=== PATIENT | male | born 1940 | race Caucasian/White ===

== ENCOUNTER 2016-05-23 16:42 | Emergency (ER) | payer MEDICARE, BC ==
[~2016-05-23 16:42] MED LIST: ALLEGRA ALLERG180 MG PO; ASPIRIN E.C. 8181 MG PO; BRILINTA90 MG PO; BROVANA15 MCG/2 M INH; CARDI-OMEGA1000 MG PO; CEFDINIR300 MG PO; CHILDREN'S ASPI81 M1 PO; COREG12.5 M1 PO; COREG12.5 MG PO; COZAAR100 MG PO; DHA PO; FLOMAX0.4 MG PO; FLONASE ALLERG9.9 ML NS; IMDUR 30MG30 MG/TAB PO; IPRATROPIUM BROM3 M1 IH; IPRATROPIUM BROM3 M1 INH; KROGER NIC14 MG/24 H TOP; LASIX20 M1 PO; LASIX20 MG PO; LEVAQUIN 5500 MG/TA1 PO; LIPITOR80 MG PO; MS CONTIN 330 MG/TAB PO; NEURONTIN300 M1 PO; NEURONTIN300 MG PO; NITROSTAT0.4 MG SL; NORCO 325 MG-101 TAB PO; PHARMASSURE FIS1 SGL PO; PREDNISONE20 M1 PO; PULMICORT0.25 MG/2 IH; REQUIP 0.5MG0.5 MG PO; SINEMET 25-1001 TAB PO; SINGULAIR10 MG PO; SPIRIVA RE2.5 MCG/Ac IH; TRADJENTA5 MG PO; XANAX0.5 M1 PO; XARELTO20 MG PO; ZITHROMAX500 M2 PO; ZOCOR 80MG80 MG PO; ZOVIRAX 800MG800 M1 PO; ZYLOPRIM 300MG300 MG PO
[2016-05-23] MEDS ORDERED: CEPHALEXIN500 M1 PO (19:16)
== END 2016-05-23 19:25 | disposition home or self-care (01) ==
LOC: ED 16:42
DX: S08.122A Partial traumatic amputation of left ear, initial encounter (principal); W18.09XA Striking against other object with subsequent fall, initial encounter; Y92.018 Other place in single-family (private) house as the place of occurrence of the external cause

== ENCOUNTER → 2016-05-27 | Outpatient (CLI) | payer MEDICARE, BC ==
[~2016-05-27] MED LIST changes: +ATORVASTATIN CA80 MG PO; +CEPHALEXIN500 M1 PO; +NITROSTAT0.4 M1 SL
[2016-05-27 13:16] VITALS: BP 209/114
[2016-05-27 13:18] VITALS: BP 188/84
--- NOTE | 2016-05-27 13:23 | NUR ---
Xeroform dressing soaked off of left ear. Sutures intact with edges well approximated. Skin appears purplish. Area cleansed and new dressing applied
== END ==
LOC: AMSURD 13:13
DX: S08.12 Partial traumatic amputation of ear (principal)

== ENCOUNTER 2016-05-30 13:51 | Emergency (ER) | payer MEDICARE, BC ==
[~2016-05-30 13:51] MED LIST changes: -ATORVASTATIN CA80 MG PO; -NITROSTAT0.4 M1 SL
[2016-05-30 14:07] VITALS: BP 156/68
== END 2016-05-30 14:08 | disposition home or self-care (01) ==
LOC: ED 13:51
DX: S08.12 Partial traumatic amputation of ear (principal)

== ENCOUNTER 2016-06-06 12:28 | Emergency (ER) | payer MEDICARE, BC ==
[2016-06-06 12:51] VITALS: BP 189/71
== END 2016-06-06 12:52 | disposition home or self-care (01) ==
LOC: ED 12:28
DX: S08.12 Partial traumatic amputation of ear (principal); W18.09XD Striking against other object with subsequent fall, subsequent encounter

== ENCOUNTER 2016-07-06 05:39 | Emergency (ER) | payer MEDICARE, BC | END 2016-07-06 09:28 | disposition home or self-care (01) | LOC: ED 05:39 | DX: B34.9 Viral infection, unspecified (principal); J44.9 Chronic obstructive pulmonary disease, unspecified; E11.9 Type 2 diabetes mellitus without complications; F17.210 Nicotine dependence, cigarettes, uncomplicated | CPT/HCPCS: J7030 ==

== ENCOUNTER 2016-07-09 21:50 | Emergency (ER) | payer MEDICARE, BC ==
[2016-07-10 01:13] VITALS: BP 115/45
== END 2016-07-10 01:13 | disposition other institution (70) ==
LOC: ED 21:50
DX: J44.1 Chronic obstructive pulmonary disease with (acute) exacerbation (principal); J00 Acute nasopharyngitis [common cold]; N17.9 Acute kidney failure, unspecified; E87.5 Hyperkalemia; F17.210 Nicotine dependence, cigarettes, uncomplicated
CPT/HCPCS: J2930

== ENCOUNTER 2016-07-10 01:13 | Inpatient (IN) | payer MEDICARE, BC ==
[2016-07-10] VITALS (8 sets, daily range): BP systolic 115–174; BP diastolic 45–77
--- NOTE | 2016-07-10 02:00 | NUR ---
PT ADMITTED FROM ER TO ROOM 203. ORIENTED TO ROOM. PT APPEARS TO BE DROWSY BUT IT IS 0130 IN THE MORNING. STATES IT IS [address] IN [facility]. ADMISSION ASSESSMENT AND HX OBTAINED. IVF STARTED IN RFA IV AT 200ML/HR. LS WITH EXP WHEEZING. DENIES PAIN. PT HAS SCABBED AREA TO LEFT EAR FROM PREVIOUS FALL. SUTURED IT A COUPLE WEEKS AGO. SUTURES NO LONGER IN PLACE. PT IS A HIGH FALL RISK. BED ALARM IN ON AND CALL LIGHT IS WITHIN REACH. PT INFORMED A URINE SAMPLE IS STILL NEEDED.
--- NOTE | 2016-07-10 05:53 | NUR ---
Pt has slept well since admission last night. Pt has not voided yet. Will collect urine sample when he does. Bed alarm remains on.
--- NOTE | 2016-07-10 07:28 | NUR ---
REPORT GIVEN TO MAYI ELAINE.
--- NOTE | 2016-07-10 08:10 | NUR ---
Pt called to check pt status. States that she will be in to see pt after she gets off of work.
--- NOTE | 2016-07-10 08:24 | NUR ---
Clean catch urine collected.
--- NOTE | 2016-07-10 09:29 | NUR ---
Pt sitting up in chair. A&O x 3 at this time. Fluids infusing to IV in RFA per order. O2 @ 1L via NC. Pt does have intermittent cough but denies production. Pt denies pain and is unsure what he takes MS Contin for. After some thought, states "maybe chronic kidney pain." Intermittent upper lobe crackles heard but are cleared with cough. Pt did ambulate with 1 assist to BR and back to chair.
--- NOTE | 2016-07-10 15:05 | NUR ---
Pt sats 95% on 1L O2. Turned O2 off, will recheck.
--- NOTE | 2016-07-10 16:38 | NUR ---
Pt assisted up to BR. Tachypnic with exertion and desats to 89% RA. Pt with productive cough, thick white sputum noted. Pt c/o mouth dryness, noted to be mouth breather. Sats recover quickly to 91% RA upon sitting, respirations remain 24/min.
--- NOTE | 2016-07-10 17:52 | NUR ---
Pt at bedside. Dr. Banks talks to and pt.
--- NOTE | 2016-07-10 19:25 | NUR ---
Report received from Alina Toussaint RN
--- NOTE | 2016-07-10 19:45 | NUR ---
Resting in chair, a/o x 3. Pupils equal and reactive to light. Answers questions appropriately. Pt stated he takes his pain medication and sleep medication all at the same time. Usually at 1800. Offered pt hydrocodone and xanax. Pt agreed. See shift assessment.
--- NOTE | 2016-07-10 23:30 | NUR ---
Resting in recliner, a/o x 3, denies pain. Chair alarm on.
[2016-07-11] VITALS (7 sets, daily range): BP systolic 166–195; BP diastolic 62–74
--- NOTE | 2016-07-11 00:28 | NUR ---
Pt resting with eyes closed, respirations even and none labored. Opened eyes when spoken too. Denied pain, or SOB. Given scheduled Heparin SQ. Offered to help pt reposition pt declined.
--- NOTE | 2016-07-11 03:58 | NUR ---
Q hourly checks done. Resting in recliner, with feet elevated. Chair alarm on. Pt opens eyes when spoken too. Denies having any needs or concerns. Denies SOB.
--- NOTE | 2016-07-11 05:00 | NUR ---
Resting in recliner with feet elevated. Normal Saline infusing at 125mls/hour. Opens eyes when spoken too. Denies pain, or SOB. Sa02 95% on room air. Respirations 20 and even.
--- NOTE | 2016-07-11 05:38 | NUR ---
At 0525 Ambulated to the bathroom with use of walker and gait belt. BROOCH MAKER NOVELTY at pt's side. Currently complaining of SOB. Stated it came on after walking. Sa02 91% on room air. Respirations labored and shallow. Respiration count 24-26. Lung sounds coarse on expirations in upper and lower lobes. Oxygen applied at 3L/NC. Breathing treatment started.
--- NOTE | 2016-07-11 05:46 | NUR ---
Pt a/o x 3. States he is starting to feel better. Lung sounds diminished in upper lobes bilaterally, anteriorly. Lung sounds coarse right lower anteriorly. Left lower lobe diminished anteriorly. Posteriorly lung sounds coarse on expiration. Sa02 99% on 3L/NC, respirations 24. Oxygen decreased to 2L/NC.
--- NOTE | 2016-07-11 06:00 | NUR ---
Continues to be SOB. Has loose productive cough. Sputum is thick off white. Pt c/o's of pain from SOB and coughing. C/o's of right leg starting to cramp. Given 1 hydrocodone PO. Sa02 96% on 2L/NC. Respirations 24 and shallow.
--- NOTE | 2016-07-11 07:06 | NUR ---
Report given to Dr Banks. Notified of pt's weight increase of pt's SOB episode at 0530. Notified of breathing treatment and sputum specimen collected. Notified of Sa02 and pt's being on Oxygen and IV fluids decreased to 50mls/hour. Order received for BMP, sputum specimen and to keep IV fluids at 50mls/hr.
--- NOTE | 2016-07-11 07:35 | NUR ---
Report given to Kierra Smart RN
--- NOTE | 2016-07-11 08:40 | NUR ---
NOTIFIED OF PATIENTS PRO BNP:3676.7 AT THIS TIME, SHE ORDERS TO DC FLUIDS AND ADMINISTER 40MG IV LASIX AT THIS TIME, WILL CONTINUE TO MONITOR PATIENTS BREATHING STATUS AND LABS
--- NOTE | 2016-07-11 17:12 | NUR ---
Pt up eating supper at this time, stable condition, states he feels "good", denies pain, alert and oriented x3, denies needs at this time, IV fluids no longer running due to this AM's order to DC, IV site clean dry and intact, chair alarm on, call light within reach
--- NOTE | 2016-07-11 19:51 | NUR ---
Report received from Kierra SEE. Patient sitting up in chair with pressure pad alarm on. Drowsy, oriented. Denies pain. Reports some productive cough of "yellow" sputum. Has dry, hacky cough when nurse in room. Lungs diminished all nolasco. Has IS at bedside. INT patent and flushed easily with 10 ML of NS. +1 edema to BLE. Denies wants or needs. Call light in reach.
--- NOTE | 2016-07-11 20:45 | NUR ---
Accu-check 315. Dr. Milian notified. No new orders.
--- NOTE | 2016-07-11 23:22 | NUR ---
B/P 190/73 Dr. Banks notified. Orders to recheck in 30 minutes. Notify if > 180.
--- NOTE | 2016-07-11 23:48 | NUR ---
B/P 183/74. Reported to Dr. Banks. Orders to continue to monitor with scheduled vital signs.
[2016-07-12 03:09] VITALS: BP 187/80
--- NOTE | 2016-07-12 04:14 | NUR ---
Rests in recliner with eyes closed. Pressure pad alarm on. No signs of pain or distress.
[2016-07-12 06:30] VITALS: BP 186/85
--- NOTE | 2016-07-12 07:15 | NUR ---
Report to Kierra SEE.
--- NOTE | 2016-07-12 08:00 | NUR ---
PT UP IN CHAIR WAITING TO EAT BREAKFAST, STATES HE "DOESN'T FEEL LIKE HE'S GETTING BETTER, BUT MAYBE WORSE", THIS INFORMATION RELAYED TO THE ATTENDING PROVIDER MATTHEW WANG APRN, PT O2 SATURATION AT THIS TIME IS 94% BUT HE HAS A STRONG INTERMITTENT COUGH AND DOES REPORT SOB ESPECIALLY WITH EXERTION, PT PUTTING FORTH MORE EFFORT TODAY WITH TRANSFERS AND SEEMS TO BE SIGNIFICANTLY MORE FATIGUED TODAY THAN YESTERDAY, OFFERED O2 VIA NASAL CANULA FOR COMFORT AND PT STATES HE MAY WEAR IT AFTER THE BREATHING TREATMENT, PT STATES "YOU THINK I'M COMING DOWN WITH THE PNEUMONIA?", WILL NOTIFY PROVIDER OF THESE CHANGES
--- NOTE | 2016-07-12 09:40 | NUR ---
JESSI ORDERED CXRAY AT THIS TIME TO REVALUATE PATIENTS HEALTH STATUS, ALSO ORDERED INFLUENZE SCREEN TO REASSESS NEW SYMPTOMS, PATIENT BREATHING IS STABLE AT THIS TIME ON ROOM AIR, O2:95%, JESSI VERBALLY STATES THAT HIS CXRAY LOOKS "OKAY"
--- NOTE | 2016-07-12 10:55 | NUR ---
MORE OF PATIENTS HOME MEDICATIONS ADDED TO MED PASS AT THIS TIME, PROVIDER FEELS HE MAY BE FEELING WORSE BECAUSE OF SOME OF HIS HOME MEDICATIONS THAT HAVE SINCE BEEN DC'D DURING THIS HOSPITALIZATION, WILL ADMINISTER THESE MEDS AND CONTINUE TO MONITOR PATIENTS HEALTH STATUS
[2016-07-12 11:04] VITALS: BP 164/78
--- NOTE | 2016-07-12 12:58 | NUR ---
PT REPORTS HES "FEELING BETTER THAN THIS MORNING", HAS CALLED AND VISITED WITH PATIENT AND STAFF ABOUT POSSIBLE DC PLAN, EDUCATED THAT HE WILL NOT BE DC'ING TODAY DUE TO CURRENT HEALTH STATUS, MATTHEW WANG STATES SHE WANTS TO REASSESS AFTER NEW MEDICATIONS ORDERED TOMORROW AND DECIDE THEN ON A DC DATE OR TO TRANSFER HIM TO THE SWING BED PROGRAM
[2016-07-12 14:50] VITALS: BP 185/88
[2016-07-12 18:14] VITALS: BP 190/67
--- NOTE | 2016-07-12 18:43 | NUR ---
Report received from Kierra Smart RN
--- NOTE | 2016-07-12 19:00 | NUR ---
Pt sitting in recliner, a/o x 3. at side. Denies pain. States he feels slightly nauseated and SOB. See shift assessment.
--- NOTE | 2016-07-12 19:00 | NUR ---
Bruises noted on pt's right and left posterior forearm. Color purple to dark red.
--- NOTE | 2016-07-12 21:15 | NUR ---
Pt c/o of of his "stomach being upset." Asked pt if he felt like he would vomit, he stated " a little." Rosalva Martin APRN notified. Order received for zofran 4mg PO. Zofran 4mg PO given at 2105.
[2016-07-12 22:53] VITALS: BP 188/74
--- NOTE | 2016-07-12 23:06 | NUR ---
Pt awake, a/o x 3, resting in recliner. Stated nausea was gone. C/o of pain in legs. Rated pain 4 out of 10. Given norco 10mg PO.
--- NOTE | 2016-07-12 23:45 | NUR ---
Resting in recliner, eyes closed even, none labored respirations. Pt opens eyes when spoken too. Pt states pain in legs "much better" Rated pain 1 out of 10. BP 163/74, Resp 20, Pulse 60, Sa02 93% on room air. Pt resting in recliner with feet elevated.
--- NOTE | 2016-07-13 02:00 | NUR ---
Q hourly checks done. Chair alarm on. Pt has been resting in recliner with feet elevated. Sa02 93% on room air. Opens eyes when spoken too. Denies pain, chest pain or SOB.
[2016-07-13 03:05] VITALS: BP 158/84
--- NOTE | 2016-07-13 05:32 | NUR ---
Q hourly checks done, chair alarm on. At 0500 Pt used call light, ambulated to the bathroom with walker, gait belt and glass installer socks on. TICKET MANAGER at pt's side. 0530 Currently awake resting in recliner with feet elevated. Pt denies chest pain. States feet, ankles and lower legs "hurt a little, but that's my normal pain. Rated 4 out of 10. Offered pt pain medication. Pt declined. Stated he felt slight SOB after walking to bathroom. Lungs sounds coarse in upper and lower lobes. Pt has loose cough. States he is un able to cough anything up. Sa02 89% room air. Pulse 60, respirations 24. Pt given guafenesin 600mg PO.
[2016-07-13 06:20] VITALS: BP 180/82
--- NOTE | 2016-07-13 07:07 | NUR ---
Report given to Belem Hermosillo RN
--- NOTE | 2016-07-13 07:15 | NUR ---
report from Perez SEE
--- NOTE | 2016-07-13 08:15 | NUR ---
patient is up his chiar at bedside, legs elevated, INT to right forearm, he denies pain, breath sounds remain diminished through out, there are few crackles in the posterior bases,
--- NOTE | 2016-07-13 09:16 | NUR ---
AMBULATES TO BATHROOM WITH WALKER AND GAIT BELT IN PLACE. GAIT STEADY. HEAVY RESPIRATIONS NOTED. OXYGEN SATURATION 94% PRIOR TO START. PATIENT VOIDS AND RETURNS TO CHAIR VERBALIZING HE FEELS SHORT OF BREATH AND FATIGUED. OXYGEN SATURATION 93% ROOM AIR. PULSE 121.
--- NOTE | 2016-07-13 09:53 | NUR ---
ambulates inhallway approx 50 feet, with gait belt and walker in place, patient coughs, takes short fast breaths, heart rates up to 98 and pulse ox down to 84, he is returned to his chair where he continues to cough, je alsostates this is the farthest he has waked since his admission. Provider is given this information.
--- NOTE | 2016-07-13 11:16 | NUR ---
Carlos Almanzar PA-c, secures bed placement at [facility] [place].
[2016-07-13 11:37] VITALS: BP 186/71
--- NOTE | 2016-07-13 11:40 | NUR ---
Jack from [facility] notified of transfer request.
--- NOTE | 2016-07-13 11:50 | NUR ---
report to Meagan SEE at [facility], patient to go to room 356.
--- NOTE | 2016-07-13 11:57 | NUR ---
EMS arrives, report to staff, patient up to bathroom, voids a large amount then to EMS cart, he remains awake, alert, oriented, he also exhibits moderate dyspnea while up,
--- NOTE | 2016-07-13 12:12 | NUR ---
Patient leaves building to care of EMS staff.
== END 2016-07-13 12:10 | disposition short-term general hospital (02) | DRG 191 ==
LOC: MED/SURG 01:13
PROVIDERS: ADMIT Family Medicine
DX: J44.1 Chronic obstructive pulmonary disease with (acute) exacerbation (principal); N17.9 Acute kidney failure, unspecified; I13.0 Hypertensive heart and chronic kidney disease with heart failure and stage 1 through stage 4 chronic kidney disease, or unspecified chronic kidney disease; I50.9 Heart failure, unspecified; E87.5 Hyperkalemia; D69.6 Thrombocytopenia, unspecified; D64.9 Anemia, unspecified; E11.22 Type 2 diabetes mellitus with diabetic chronic kidney disease; N18.9 Chronic kidney disease, unspecified; G20 Parkinson's disease; M10.9 Gout, unspecified; I25.10 Atherosclerotic heart disease of native coronary artery without angina pectoris; R09.02 Hypoxemia; F17.210 Nicotine dependence, cigarettes, uncomplicated; Z79.82 Long term (current) use of aspirin; Z79.84 Long term (current) use of oral hypoglycemic drugs
CPT/HCPCS: J1644; J1940; J7030; J7512

== ENCOUNTER → 2016-10-08 | Outpatient (CLI) | payer MEDICARE, BC ==
[~2016-10-08] MED LIST changes: +ATORVASTATIN CA80 MG PO; +NITROSTAT0.4 M1 SL
== END ==
LOC: LAB 08:59
DX: N18.3 Chronic kidney disease, stage 3 (moderate) (principal); I15.8 Other secondary hypertension; D64.9 Anemia, unspecified

== ENCOUNTER 2016-11-12 07:05 | Emergency (ER) | payer MEDICARE, BC ==
[~2016-11-12] VITALS: Ht 175.3 cm; Wt 90.9 kg
[~2016-11-12 07:05] MED LIST changes: -ATORVASTATIN CA80 MG PO; -NITROSTAT0.4 M1 SL
[2016-11-12] MEDS ORDERED: ATORVASTATIN CA80 MG PO (08:04)
[2016-11-12] MEDS ORDERED: NITROSTAT0.4 M1 SL (08:06)
[2016-11-12 08:36] VITALS: BP 143/74
== END 2016-11-12 08:42 | disposition home or self-care (01) ==
LOC: ED 07:05
DX: S80.02XA Contusion of left knee, initial encounter (principal); S60.212A Contusion of left wrist, initial encounter; S40.012A Contusion of left shoulder, initial encounter; S80.212A Abrasion, left knee, initial encounter; W18.00XA Striking against unspecified object with subsequent fall, initial encounter; Y92.008 Other place in unspecified non-institutional (private) residence as the place of occurrence of the external cause; I25.10 Atherosclerotic heart disease of native coronary artery without angina pectoris; E11.22 Type 2 diabetes mellitus with diabetic chronic kidney disease; N18.9 Chronic kidney disease, unspecified; E11.40 Type 2 diabetes mellitus with diabetic neuropathy, unspecified; F17.210 Nicotine dependence, cigarettes, uncomplicated; J44.9 Chronic obstructive pulmonary disease, unspecified; G20 Parkinson's disease; Z98.1 Arthrodesis status

== ENCOUNTER → 2017-04-07 | Outpatient (CLI) | payer MEDICARE, BC ==
[~2017-04-07] MED LIST changes: +ATORVASTATIN CA80 MG PO; +NITROSTAT0.4 M1 SL
[2017-04-07 09:20] LABS: BUN/CREATININE RATIO 17.7 (6.0-26.0); CALCIUM 8.7 mg/dL (8.4-10.2); POTASSIUM 4.3 mmol/L (3.6-5.0)
[2017-04-07 10:34] LABS: URINE APPEARANCE CLEAR; URINE BILIRUBIN NEGATIVE (NEGATIVE); URINE BLOOD TRACE (NEGATIVE); URINE COLOR YELLOW; URINE GLUCOSE NEGATIVE (NEGATIVE); URINE KETONE NEGATIVE (NEGATIVE); URINE LEUKOCYTE ESTERASE NEGATIVE (NEGATIVE); URINE NITRATE NEGATIVE (NEGATIVE); URINE PROTEIN(semi-quant) 2+ mg/dL (NEGATIVE); URINE UROBILINOGEN NORMAL (NORMAL); URINE WBC 0-1 /hpf (0-3)
== END ==
LOC: LAB 08:56
PROVIDERS: Internal Medicine Nephrology
DX: N18.3 Chronic kidney disease, stage 3 (moderate) (principal); I15.8 Other secondary hypertension; D64.9 Anemia, unspecified

== ENCOUNTER → 2017-11-29 | Outpatient (CLI) | payer MEDICARE, BC ==
[2017-11-29 17:24] LABS: BUN/CREATININE RATIO 25.8 (6.0-26.0); CALCIUM 8.8 mg/dL (8.4-10.2); POTASSIUM 4.8 mmol/L (3.6-5.0)
[2017-11-29 18:03] LABS: URINE APPEARANCE CLEAR; URINE COLOR YELLOW
[2017-11-29 18:04] LABS: URINE BILIRUBIN NEGATIVE (NEGATIVE); URINE BLOOD NEGATIVE (NEGATIVE); URINE GLUCOSE NEGATIVE (NEGATIVE); URINE KETONE NEGATIVE (NEGATIVE); URINE LEUKOCYTE ESTERASE NEGATIVE (NEGATIVE); URINE NITRATE NEGATIVE (NEGATIVE); URINE PROTEIN(semi-quant) TRACE mg/dL (NEGATIVE); URINE UROBILINOGEN NORMAL (NORMAL); URINE WBC 0-1 /hpf (0-3)
== END ==
LOC: LAB 09:00
PROVIDERS: Internal Medicine Nephrology
DX: N18.3 Chronic kidney disease, stage 3 (moderate) (principal)

== ENCOUNTER → 2018-08-01 | Outpatient (CLI) | payer MEDICARE, BC ==
[2018-08-01 09:14] LABS: CALCIUM 9.3 mg/dL (8.4-10.2); POTASSIUM 4.6 mmol/L (3.6-5.0)
== END ==
LOC: LAB 08:48
PROVIDERS: Internal Medicine
DX: I15.1 Hypertension secondary to other renal disorders (principal); N18.3 Chronic kidney disease, stage 3 (moderate)

== ENCOUNTER → 2019-03-15 | Outpatient (CLI) | payer MEDICARE, BC ==
[2019-03-15 09:40] LABS: EOS # 0.5 (0.04-0.40); HEMATOCRIT 31.7 % (42.0-52.0); HEMOGLOBIN 9.7 g/dL (13.5-18.0); LYMPH# 1.2 (1.50-4.00); MEAN CELL VOLUME 91 fl (78-100); MEAN CORPUSCULAR HEMOGLOBIN 28 pg (27-31); MEAN CORPUSCULAR HGB CONC 31 g/dL (33-37); MEAN PLATELET VOLUME 10.5 fl (7.4-10.4); MONO # 0.6 (0.20-0.80); NEU # 4.2 (1.40-6.50); PLATELET COUNT 163 K/mm3 (130-400); RED CELL DISTRIBUTION WIDTH 15.4 % (11.5-14.5); WHITE BLOOD COUNT 6.5 K/mm3 (4.8-10.8)
== END ==
LOC: LAB 08:51
PROVIDERS: Internal Medicine
DX: D46.20 Refractory anemia with excess of blasts, unspecified (principal)

== ENCOUNTER → 2019-03-21 | Outpatient (CLI) | payer MEDICARE, BC | LOC: LAB 09:55 | PROVIDERS: Psychiatry & Neurology Neurology | DX: E11.9 Type 2 diabetes mellitus without complications (principal); R47.81 Slurred speech ==

== ENCOUNTER → 2019-03-22 | Outpatient (CLI) | payer MEDICARE, BC | LOC: RAD 08:59 | DX: F80.81 Childhood onset fluency disorder (principal) | CPT/HCPCS: Q9967 ==

== ENCOUNTER → 2019-05-17 | Outpatient (CLI) | payer MEDICARE, BC ==
[2019-05-17 13:54] LABS: EOS # 0.5 (0.04-0.40); HEMATOCRIT 34.3 % (42.0-52.0); HEMOGLOBIN 10.5 g/dL (13.5-18.0); LYMPH# 1.2 (1.50-4.00); MEAN CELL VOLUME 90 fl (78-100); MEAN CORPUSCULAR HEMOGLOBIN 28 pg (27-31); MEAN CORPUSCULAR HGB CONC 31 g/dL (33-37); MEAN PLATELET VOLUME 10.4 fl (7.4-10.4); MONO # 0.5 (0.20-0.80); NEU # 4.2 (1.40-6.50); PLATELET COUNT 173 K/mm3 (130-400); RED CELL DISTRIBUTION WIDTH 15.5 % (11.5-14.5); WHITE BLOOD COUNT 6.3 K/mm3 (4.8-10.8)
[2019-05-17 14:02] LABS: EOS % 7.5 % (0.0-4.0)
== END ==
LOC: LAB 13:40
PROVIDERS: Internal Medicine
DX: D46.20 Refractory anemia with excess of blasts, unspecified (principal)

== ENCOUNTER → 2019-06-06 | Outpatient (CLI) | payer MEDICARE, BC ==
[2019-06-06 12:08] LABS: HEMATOCRIT 32.7 % (42.0-52.0); MEAN CELL VOLUME 90 fl (78-100); MEAN CORPUSCULAR HEMOGLOBIN 28 pg (27-31); MEAN CORPUSCULAR HGB CONC 31 g/dL (33-37); MEAN PLATELET VOLUME 10.7 fl (7.4-10.4); PLATELET COUNT 169 K/mm3 (130-400); RED BLOOD COUNT 3.63 M/mm3 (4.20-5.60); RED CELL DISTRIBUTION WIDTH 15.8 % (11.5-14.5); WHITE BLOOD COUNT 12.5 K/mm3 (4.8-10.8)
[2019-06-06 12:21] LABS: LYMPHOCYTE 9 % (20-51); MONOCYTE 5 % (3-10); NEUTROPHILS 83 % (42-75)
== END ==
LOC: LAB 11:55
PROVIDERS: Internal Medicine Nephrology
DX: D46.20 Refractory anemia with excess of blasts, unspecified (principal)

== ENCOUNTER → 2019-06-13 | Outpatient (CLI) | payer MEDICARE, BC ==
[2019-06-13 14:40] LABS: POTASSIUM 4.2 mmol/L (3.5-5.1)
[2019-06-13 14:42] LABS: CALCIUM 9.1 mg/dL (8.3-10.5)
== END ==
LOC: LAB 14:08
PROVIDERS: Internal Medicine Nephrology
DX: I15.1 Hypertension secondary to other renal disorders (principal); N18.3 Chronic kidney disease, stage 3 (moderate)

== ENCOUNTER 2019-10-12 09:00 | Outpatient (RCR) | payer MEDICARE, BC | END 2019-10-12 09:30 | disposition still patient (30) | LOC: OT 09:00 | DX: G56.03 Carpal tunnel syndrome, bilateral upper limbs (principal) ==

== ENCOUNTER 2019-11-06 10:18 | Inpatient (IN) | payer MEDICARE, BC ==
[~2019-11-06] VITALS: Ht 175.3 cm; Wt 83.5 kg
[2019-11-06 13:13] VITALS: BP 129/71
[2019-11-06] MEDS ORDERED: CARBIDOPA/LEVODOPA PO (13:52)
[2019-11-06] MEDS ORDERED: DALIRESP500 MCG PO (13:56)
[2019-11-06] MEDS ORDERED: PANTOPRAZOLE SO40 MG PO (13:56)
[2019-11-06] MEDS ORDERED: ACETAMINOPHEN325 M1 PO (14:00)
[2019-11-06] MEDS ORDERED: NORVASC 10MG10 MG PO (14:01)
[2019-11-06] MEDS ORDERED: KEPPRA 500MG500 MG PO (14:02)
[2019-11-06 16:22] VITALS: BP 129/63
[2019-11-06 17:13] VITALS: BP 129/63
[2019-11-06 17:18] VITALS: BP 129/63
[2019-11-06 17:39] VITALS: BP 129/63
[2019-11-06 20:30] LABS: URINE APPEARANCE HAZY; URINE BILIRUBIN NEGATIVE (NEGATIVE); URINE BLOOD NEGATIVE (NEGATIVE); URINE COLOR YELLOW; URINE GLUCOSE NEGATIVE (NEGATIVE); URINE KETONE NEGATIVE (NEGATIVE); URINE NITRATE NEGATIVE (NEGATIVE); URINE PROTEIN(semi-quant) TRACE mg/dL (NEGATIVE); URINE UROBILINOGEN NORMAL (NORMAL)
[2019-11-06 20:34] LABS: URINE LEUKOCYTE ESTERASE TRACE (NEGATIVE)
[2019-11-06] MEDS ORDERED: ALLOPURINOL300 M1 PO (22:00)
[2019-11-06] MEDS ORDERED: PULMICORT0.5 MG/2 M IH (22:40)
[2019-11-06] MEDS ORDERED: SINEMET 25-1001 EACH PO (22:41)
[2019-11-06] MEDS ORDERED: SINGULAIR 110 MG/TAB PO (22:45)
[2019-11-06] MEDS ORDERED: ROPINIROLE HCL1 MG PO (22:46)
[2019-11-06] MEDS ORDERED: RT SPIRIVA INH18 MCG IH (22:47)
[2019-11-07 05:41] LABS: HEMATOCRIT 32.8 % (42.0-52.0); HEMOGLOBIN 10.2 g/dL (13.5-18.0); MEAN CELL VOLUME 87 fl (78-100); MEAN CORPUSCULAR HEMOGLOBIN 27 pg (27-31); MEAN CORPUSCULAR HGB CONC 31 g/dL (33-37); MEAN PLATELET VOLUME 10.7 fl (7.4-10.4); PLATELET COUNT 238 K/mm3 (130-400); RED BLOOD COUNT 3.78 M/mm3 (4.20-5.60); RED CELL DISTRIBUTION WIDTH 16.5 % (11.5-14.5); WHITE BLOOD COUNT 16.6 K/mm3 (4.8-10.8)
[2019-11-07 05:45] LABS: ALBUMIN 3.4 g/dL (3.4-4.8); POTASSIUM 4.4 mmol/L (3.5-5.1)
[2019-11-07 05:46] LABS: CALCIUM 8.1 mg/dL (8.3-10.5)
[2019-11-07 05:48] LABS: TOTAL PROTEIN 6.5 g/dL (6.2-8.1)
[2019-11-07 05:49] LABS: TOTAL BILIRUBIN 2.5 mg/dL (0.2-1.2)
[2019-11-07 06:20] VITALS: BP 107/64
[2019-11-07 06:21] LABS: BAND 2 % (0-10); LYMPHOCYTE 3 % (20-51); MONOCYTE 2 % (3-10); NEUTROPHILS 93 % (42-75)
[2019-11-07 06:22] LABS: ACANTHROCYTES 1+
[2019-11-07 12:55] LABS: HEMATOCRIT 29.3 % (42.0-52.0); HEMOGLOBIN 9.1 g/dL (13.5-18.0); MEAN CELL VOLUME 86 fl (78-100); MEAN CORPUSCULAR HEMOGLOBIN 27 pg (27-31); MEAN CORPUSCULAR HGB CONC 31 g/dL (33-37); MEAN PLATELET VOLUME 10.8 fl (7.4-10.4); PLATELET COUNT 149 K/mm3 (130-400); RED BLOOD COUNT 3.41 M/mm3 (4.20-5.60); RED CELL DISTRIBUTION WIDTH 16.6 % (11.5-14.5); WHITE BLOOD COUNT 18.1 K/mm3 (4.8-10.8)
[2019-11-07 13:04] LABS: BAND 3 % (0-10); LYMPHOCYTE 4 % (20-51); MONOCYTE 5 % (3-10); NEUTROPHILS 88 % (42-75)
[2019-11-07 13:53] LABS: POTASSIUM 4.4 mmol/L (3.5-5.1)
[2019-11-07 13:54] LABS: CALCIUM 7.9 mg/dL (8.3-10.5)
[2019-11-07 13:56] LABS: TOTAL PROTEIN 5.6 g/dL (6.2-8.1)
[2019-11-07 13:57] LABS: TOTAL BILIRUBIN 3.4 mg/dL (0.2-1.2)
[2019-11-07 14:21] LABS: LIPASE 19 U/L (8-78)
[2019-11-07 14:41] LABS: PROTHROMBIN TIME 11.6 SECONDS (9.0-12.0)
[2019-11-07 15:30] VITALS: BP 124/46
[2019-11-07 15:31] VITALS: BP 130/59
== END 2019-11-07 16:28 | disposition short-term general hospital (02) | DRG 950 ==
LOC: MED/SURG 10:18
PROVIDERS: Nurse Practitioner Family; Physician Assistant; ADMIT Nurse Practitioner Primary Care
DX: S06.5X9D Traumatic subdural hemorrhage with loss of consciousness of unspecified duration, subsequent encounter (principal); I25.10 Atherosclerotic heart disease of native coronary artery without angina pectoris; E11.42 Type 2 diabetes mellitus with diabetic polyneuropathy; I12.9 Hypertensive chronic kidney disease with stage 1 through stage 4 chronic kidney disease, or unspecified chronic kidney disease; N18.2 Chronic kidney disease, stage 2 (mild); D63.1 Anemia in chronic kidney disease; J44.9 Chronic obstructive pulmonary disease, unspecified; M10.9 Gout, unspecified; M19.90 Unspecified osteoarthritis, unspecified site; G20 Parkinson's disease; E78.5 Hyperlipidemia, unspecified; D72.829 Elevated white blood cell count, unspecified; R74.8 Abnormal levels of other serum enzymes; W18.39XD Other fall on same level, subsequent encounter; R53.81 Other malaise; Z79.82 Long term (current) use of aspirin; Z98.1 Arthrodesis status; Z96.652 Presence of left artificial knee joint; Z95.5 Presence of coronary angioplasty implant and graft; Z87.891 Personal history of nicotine dependence